=== PATIENT | female | born 1945 | race Caucasian/White ===

== ENCOUNTER → 2022-08-17 | Day surgery (SDC) | payer OTHER ==
[~2022-08-17] MED LIST: ATROPINE SULF 1 MG/10 ML SYR IV ONE; FLUMAZENIL 0.1 MG/ML (5 mL VIAL) IV ONE; LIDOCAINE VISCOUS 2% SOLN 15 ML UDC ONE; MIDAZOLAM HCL 10 ML ONE; NA CHLORIDE 0.9% 500 ML ONE; ONDANSETRON 4 MG/2 ML VIAL ONE; PHENOL 1.4% ORAL SPRAY 180ML ONE
--- NOTE | 2022-08-17 12:46 | TEE ---
TRANSESOPHAGEAL ECHOCARDIOGRAM REPORT CARDIOLOGY DEPARTMENT DATE OF STUDY: 08/17/2022 HEIGHT: 5'9" WEIGHT: 166 lbs DIAGNOSIS: MITRAL VALVE INSUFFICIENCY CPA TAX COMMENTS: ISAMAR CARDIAC HISTORY: CATHERIZATION: SURGERY: PROSTHETIC VALVE: PACEMAKER: 2 DIMENSIONAL ASSESSMENT: RIGHT ATRIUM: LEFT ATRIUM: RIGHT VENTRICLE: LEFT VENTRICLE: TRICUSPID VALVE: MITRAL VALVE: PULMONIC VALVE: AORTIC VALVE: PERICARDIAL EFFUSION: AORTIC ROOT: EJECTION FRACTION: 60-65 % LEFT VENTRICULAR WALL MOTION: DOPPLER/COLOR FLOW: COMMENTS: 1. NORMAL LEFT VENTRICULAR EJECTION FRACTION 60-65% 2. MODERATE TO SEVERE MITRAL REGURGITATION. TECHNOLOGIST: BETTY DAY
--- NOTE | 2022-08-17 18:14 | OP ---
Date of Procedure: 08/17/2022 Surgeon: PHILIP HAMMONDS Procedure Performed: Transesophageal echocardiogram. Indication: Mitral valve regurgitation evaluation. Description Of Procedure: After risks, benefits, and alternatives were explained, patient agreed to the procedure and signed formal consent, and patient was brought into the cardiac catheterization lab oratory and we numbed the back of the throat using local lidocaine and gave 5 mg of Versed and ISAMAR pr obe was inserted. ISAMAR was performed without complications and patient tolerated the procedure very w ell and was sent to recovery. Conclusion: 1.Successful transesophageal echocardiogram. 2.Moderate to severe mitral valve regurgitation. SR/MODL Voice ID: [id number] Report ID: [id number]
== END ==
LOC: EKG 08:00
PROVIDERS: ATTEND Internal Medicine
DX: I34.2 Nonrheumatic mitral (valve) stenosis (principal); I48.91 Unspecified atrial fibrillation; I10 Essential (primary) hypertension; I51.7 Cardiomegaly; I65.29 Occlusion and stenosis of unspecified carotid artery; Z79.899 Other long term (current) drug therapy; Z91.010 Allergy to peanuts; Z82.49 Family history of ischemic heart disease and other diseases of the circulatory system
CPT/HCPCS: 93312; J2250; J2405; J7040; J0461

== ENCOUNTER 2022-11-20 22:59 | Observation (INO) | payer OTHER ==
--- OUTSIDE RECORDS SUMMARY | 2022-11-20 23:04 | XMS REPORT | Continuity of Care Document ---
:1945 Author Organization [facility] t Address [address] [place] [address] [place] [address] Care Team Providers Name Role Phone Pcp, Patient Does Not Have A Primary Care Physician [id number] Chang REYNA, Renee Hernandez Attending Clinician [phone] Josafat DEUTSCH, Colleen Jeffers Attending Clinician Zofia ARMENDARIZ, Torie Doe Attending Clinician Unavailable Only, Ang Db Test Attending Clinician Unavailable Clinton REYNA, Janell Attending Clinician JANELL PAINTER Attending Clinician Unavailable Doctor Unassigned, Perrin Attending Clinician Unavailable Payers Payer Name Policy Type Policy Number Effective Date Expiration Date S ource Problems Condition Condition Condition Status Onset Resolution Last Treating Co mments Source Name Details Category Date Date Treatment Clinician Date Urge Urge Disease Active Methodi incontinen incontinen 07-27 ce of ce of 00:00: Hospita urine urine 00 l Atrophic Atrophic Disease Active Metho di vaginitis vaginitis 07-27 00:00: Hospita 00 l Arthritis Arthritis Disease Active Uni vers 8-12 ity of 00:00: [address] Actinic Actinic Disease Active Univers keratosis keratosis 6-20 ity of 00:00: [address] Allergies, Adverse Reactions, Alerts Allergy Allergy Status Severity Reaction(s) Onset Inactive Treating Comm ents Source Name Type Date Date Clinician Tree Propensi Active Other (See peanuts Met hodi Nuts ty to Comments) 07-27 st adverse 00:00: Hospita reaction 00 l s to drug Codeine Propensi Active Univers ty to 2 ity of adverse 00:00: [place] reaction 00 Medical s Branch CODEINE DRUG Active Univers INGREDI 07-03 ity of 00:00: [place] 00 Medical Branch Family History Family Member Diagnosis Comments Start Date Stop Date Source Natural father [facility] Natural mother Lung cancer [facility] Natural brother Atrial fibrillation [facility] Natural brother Heart attack [facility] Social History Social Habit Start Date Stop Date Quantity Comments Source History of tobacco Cigarette Smoker [facility] Gender identity [facility] Sexual orientation [facility] History SDOH University o f Alcohol Frequency [place] [facility] History SDOH University o f Alcohol Std Drinks [place] [facility] [place] History SDOH University o f Alcohol Binge [place] [facility] Exposure to Yes University of SARS-CoV-2 (event) [facility] Tobacco use and 2021-07-27 2021-07-27 Smokeless Christian exposure 00:00:00 00:00:00 tobacco non-user Hospital Cigarettes smoked 2021-07-27 2021-07-[address] current (pack per 00:00:00 00:00:00 Hospita l day) - Reported Cigarette 2021-07-27 2021-07-27 Christian pack-years 00:00:00 00:00:00 Hospital Alcohol intake 2021-07-27 2021-07-27 Current drinker Metho dist 00:00:00 00:00:00 of alcohol Hospital (finding) History of Social 2021-07-27 2021-07-[address] function 00:00:00 00:00:00 Hospital Alcohol Comment 2021-07-27 2021-07-27 daily Christian 00:00:00 00:00:00 Hospital Tobacco Comment 2010-12-16 2010-12-16 second ahnd Universi ty of 00:00:00 00:00:00 smoker both [facility] parents heavy Branch smokers. smoked a pack per week for 5 years Sex [birth year] [facility] 00:00:00 00:00:00 Hospital Smoking Status Start Date Stop Date Source Ex-smoker 2021-07-27 00:00:00 2021-07-27 00:00:00 [facility] Medications Ordered Filled Start Stop Current Ordering Indication Dosage Frequency Signature Comments Components Source Medication Medication Date Date Medication? Clinician (SIG) Name Name fluticasone Yes QD Inhale 1 Me thodi -umeclidin- 2-[address] vil[facility]ter 11:10: s once Hospita (TRELEGY 19 daily. q l ELLIPTA) morning 100-62.5-25 mcg blister with device powder for inhalation fluticasone 0 Yes QD Inhale 1 Me thodi -umeclidin- 2-[address] vilanter 11:10: s once Hospita (TRELEGY 19 daily. q l ELLIPTA) morning 100-62.5-25 mcg blister with device powder for inhalation fluticasone 0 Yes QD Inhale 1 Me thodi -umeclidin- 2-[address] vilanter 11:10: s once Hospita (TRELEGY 19 daily. q l ELLIPTA) morning 100-62.5-25 mcg blister with device powder for inhalation fluticasone 0 Yes QD Inhale 1 Me thodi -umeclidin- 2-[address] vilanter 11:10: s once Hospita (TRELEGY 19 daily. q l ELLIPTA) morning 100-62.5-25 mcg blister with device powder for inhalation fluticasone 0 Yes QD Inhale 1 Me thodi -umeclidin- 2-[address] vilanter 11:10: s once Hospita (TRELEGY 19 daily. q l ELLIPTA) morning 100-62.5-25 mcg blister with device powder for inhalation fluticasone 0 Yes QD Inhale 1 Me thodi -umeclidin- 2-[address] vilanter 11:10: s once Hospita (TRELEGY 19 daily. q l ELLIPTA) morning 100-62.5-25 mcg blister with device powder for inhalation estradioL 2021-0 Yes 1g [id number] Insert 1 g Methodi (ESTRACE) 2-[id number] 0.01 % (0.1 00:00: 3W vagina 3 Ho spita mg/gram) 00 (three) l vaginal times a cream week. estradioL 2022-0 Yes 1g Q.[id number] Insert 1 g Methodi (ESTRACE) 2-[id number] 0.01 % (0.1 00:00: 3W vagina 3 Ho spita mg/gram) 00 (three) l vaginal times a cream week. estradioL 2022-0 Yes 1g Q.[id number] Insert 1 g Methodi (ESTRACE) 2-[id number] 0.01 % (0.1 00:00: 3W vagina 3 Ho spita mg/gram) 00 (three) l vaginal times a cream week. estradioL 2022-0 Yes 1g Q.[id number] Insert 1 g Methodi (ESTRACE) 2-[id number] 0.01 % (0.1 00:00: 3W vagina 3 Ho spita mg/gram) 00 (three) l vaginal times a cream week. estradioL 2022-0 Yes 1g Q.[id number] Insert 1 g Methodi (ESTRACE) 2-[id number] 0.01 % (0.1 00:00: 3W vagina 3 Ho spita mg/gram) 00 (three) l vaginal times a cream week. estradioL 2021-0 Yes 1g Q.[id number] Insert 1 g Methodi (ESTRACE) 2-[id number] 0.01 % (0.1 00:00: 3W vagina 3 Ho spita mg/gram) 00 (three) l vaginal times a cream week. sotaloL 2020-05 Yes Q.5D Take by Methodi (BETAPACE) 2-[address] 80 MG 00:00: (two) Hospita tablet 00 times a l day. sotaloL 2020-05 Yes Q.5D Take by Methodi (BETAPACE) 2-[address] 80 MG 00:00: (two) Hospita tablet 00 times a l day. sotaloL 2020-05 Yes Q.5D Take by Methodi (BETAPACE) 2-[address] 80 MG 00:00: (two) Hospita tablet 00 times a l day. sotaloL 2020-05 Yes Q.5D Take by Methodi (BETAPACE) 2-[address] 80 MG 00:00: (two) Hospita tablet 00 times a l day. sotaloL 2020-05 Yes Q.5D Take by Methodi (BETAPACE) 2-[address] 80 MG 00:00: (two) Hospita tablet 00 times a l day. sotaloL 2020-05 Yes Q.5D Take by Methodi (BETAPACE) 2-[address] 80 MG 00:00: (two) Hospita tablet 00 times a l day. aspirin 81 Yes 81mg Take 81 mg U nivers mg tablet 7-20 by mouth ity of 09:46: daily. [address] calcium-vit Yes 1{tbl} Take 1 Tab Univers coron[place] D 7-20 by mouth ity of (OSCAL-500) 09:46[place]. [place] 500-200 04 Medical mg-unit per Branch tablet MULTIVITAMI Yes Take by Uni vers N ORAL 7-20 mouth. ity of 09:46: [address] OMEGA-3 Yes Take by Univers FATTY ACIDS 7-20 mouth. ity of (OMEGA 3 09:46: [place] ORAL) [address] [place] [address] aspirin 81 Yes 81mg Take 81 mg U nivers mg tablet 7-20 by mouth ity of 09:46: daily. [address] calcium-vit Yes 1{tbl} Take 1 Tab Univers [place] D 7-20 by mouth ity of (OSCAL-500) 09:46: [place]. [place] 500-200 04 Medical mg-unit per Branch tablet MULTIVITAMI Yes Take by Uni vers N ORAL 7-20 mouth. ity of 09:46: [address] OMEGA-3 Yes Take by Univers FATTY ACIDS 7-20 mouth. ity of (OMEGA 3 09:46: [place] ORAL) [address] [place] [address] aspirin 81 Yes 81mg Take 81 mg U nivers mg tablet 7-20 by mouth ity of 09:46: daily. [address] calcium-vit Yes 1{tbl} Take 1 Tab Univers [place] D 7-20 by mouth ity of (OSCAL-500) 09:46: [place]. [place] 500-200 04 Medical mg-unit per Branch tablet MULTIVITAMI Yes Take by Uni vers N ORAL 7-20 mouth. ity of 09:46: [place] 04 Medical Branch OMEGA-3 Yes Take by Univers FATTY ACIDS 7-20 mouth. ity of (OMEGA 3 09:46: [place] ORAL) 04 Medical Branch albuterol 2009-05 Yes [id number] 2{puff} Inhale 2 Univers (VENTOLIN) 1-18 Puffs ity of 90 00:00: every 6 [place] mcg/Actuati 00 (six) Medical on inhaler hours as Branc h needed for Wheezing and Shortness of Breath. albuterol 2009-05 Yes [id number] 2{puff} Inhale 2 Univers (VENTOLIN) 1-18 Puffs ity of 90 00:00: every 6 [place] mcg/Actuati 00 (six) Medical on inhaler hours as Branc h needed for Wheezing and Shortness of Breath. albuterol 2009-05 Yes [id number] 2{puff} Inhale 2 Univers (VENTOLIN) 1-18 Puffs ity of 90 00:00: every 6 [place] mcg/Actuati 00 (six) Medical on inhaler hours as Branc h needed for Wheezing and Shortness of Breath. valACYclovi Yes 2g Take 2 Univ ers r (VALTREX) 6-02 Tabs by ity o f 1 g tablet 00:00: mouth. [place] 00 twice Medical daily as Branch needed for cold sore valACYclovi Yes 2g Take 2 Univ ers r (VALTREX) 6-02 Tabs by ity o f 1 g tablet 00:00: mouth. [place] 00 twice Medical daily as Branch needed for cold sore valACYclovi Yes 2g Take 2 Univ ers r (VALTREX) 6-02 Tabs by ity o f 1 g tablet 00:00: mouth. [place] 00 twice Medical daily as Branch needed for cold sore Immunizations Ordered Filled Immunization Date Status Comments Sour e Immunization Name Name SILVIA COVID-19 2021-01-29 Completed [facility] MRNA VACCINATION 00:00:00 [facility] PFIZER COVID-19 2021-01-29 Completed Christian MRNA VACCINATION 00:00:00 [facility] COVID-19 2021-01-29 Completed Christian MRNA VACCINATION 00:00:00 [facility] SILVIA COVID-19 2021-01-29 Completed [facility] Com[facility] MRNA VACCINATION 00:00:00 [facility] PFIZER COVID-19 2021-01-29 Completed Christian MRNA VACCINATION 00:00:00 [facility] PFIZER COVID-19 2020-07-01 Completed Christian MRNA VACCINATION 00:00:00 [facility] PFIZER COVID-19 2020-07-01 Completed Christian MRNA VACCINATION 00:00:00 [facility] PFIZER COVID-19 2020-07-01 Completed [facility] MRNA VACCINATION 00:00:00 [facility] PFIZER COVID-19 2020-07-01 Completed [facility] MRNA VACCINATION 00:00:00 [facility] PFIZER COVID-19 2020-07-01 Completed [facility] MRNA VACCINATION 00:00:00 [facility] PFIZER COVID-19 2020-07-01 Completed [facility] MRNA VACCINATION 00:00:00 [facility] SILVIA COVID-19 2020-06-10 Completed [facility] MRNA VACCINATION 00:00:00 [facility] SILVIA COVID-19 2020-06-10 Completed [facility] MRNA VACCINATION 00:00:00 [facility] SILVIA COVID-Marino 2020-06-10 Completed Christian MRNA VACCINATION 00:00:00 [facility] SILVIA COVID-Marino 2020-06-10 Completed Christian MRNA VACCINATION 00:00:00 [facility] SILVIA COVID-Marino 2020-06-10 Completed Christian MRNA VACCINATION 00:00:00 [facility] SILVIA COVID-Marino 2020-06-10 Completed Christian MRNA VACCINATION 00:00:00 [facility] Influenza Virus 2010-02-27 Completed Universit y of Vaccine 00:00:00 [facility] Influenza Virus 2010-02-27 Completed Universit y of Vaccine 00:00:00 [facility] Influenza Virus 2010-02-27 Completed Universit y of Vaccine 00:00:00 [facility] Influenza Virus 2009-02-27 Completed Universit y of Vaccine 00:00:00 [facility] Pneumococcal 7 2009-02-27 Completed University of Conjugate, PCV7 00:00:00 [place] [facility] (Prevnar7) [place] Influenza Virus 2009-02-27 Completed Universit y of Vaccine 00:00:00 [facility] Pneumococcal 7 2009-02-27 Completed University of Conjugate, PCV7 00:00:00 [place] [facility] (Prevnar7) [place] Influenza Virus 2009-02-27 Completed Universit y of Vaccine 00:00:00 [facility] Pneumococcal 7 2009-02-27 Completed University of Conjugate, PCV7 00:00:00 [place] [facility] (Prevnar7) Branch Procedures Procedure Date / Time Performed Performing Clinician Sourc e CT CHEST WO CONTRAST 2021-12-14 16:57:10 [facility] ASSIGNMENT OF BENEFITS 2021-02-22 22:39:25 Doctor Unassigned, No [facility] Name Medical Branch Plan of Care Planned Activity Planned Date Details Comments Source Future Scheduled 2022-11-20 Hepatitis C screening [facility] [place] [place] Hospital Test 23:03:34 (procedure) [code = 259364955] Future Scheduled 2022-11-20 SHINGLES VACCINES (1 Met [facility] [place] [facility] Test 23:03:34 of 2) [code = SHINGLES VACCINES (1 of 2)] Future Scheduled 2022-11-20 65+ PNEUMOCOCCAL Methodi Hospital Test 23:03:34 VACCINE (1 - PCV) [code = 65+ PNEUMOCOCCAL VACCINE (1 - PCV)] Future Scheduled 2022-11-20 COVID-19 [facility] 23:03:34 Pfizer series) [code = COVID-19 VACCINE (4 - Pfizer series)] Future Scheduled 2022-11-20 INFLUENZA VACCINE Method ist Hospital Test 23:03:34 [code = INFLUENZA VACCINE] Future Scheduled 2022-05-16 Hepatitis C screening [facility] [place] [place] Hospital Test 04:07:16 (procedure) [code = 033686235] Future Scheduled 2022-05-16 SHINGLES VACCINES (1 Met [facility] Hospital Test 04:07:16 of 2) [code = SHINGLES VACCINES (1 of 2)] Future Scheduled 2022-05-16 65+ PNEUMOCOCCAL Methodi Hospital Test 04:07:16 VACCINE (1 - PCV) [code = 65+ PNEUMOCOCCAL VACCINE (1 - PCV)] Future Scheduled 2022-05-16 COVID-19 VACCINE (4 - Me odi Hospital Test 04:07:16 Booster for Pfizer series) [code = COVID-19 VACCINE (4 - Booster for Pfizer series)] Future Scheduled 2022-05-16 INFLUENZA VACCINE Method ist Hospital Test 04:07:16 [code = INFLUENZA VACCINE] Future Scheduled 2022-05-16 [facility] 04:07:16 (procedure) [code = 769831156] Future Scheduled 2022-05-16 SHINGLES VACCINES (1 Met [facility] Hospital Test 04:07:16 of 2) [code = SHINGLES VACCINES (1 of 2)] Future Scheduled 2022-05-16 65+ PNEUMOCOCCAL Methodi [facility] Test 04:07:16 VACCINE (1 - PCV) [code = 65+ PNEUMOCOCCAL VACCINE (1 - PCV)] Future Scheduled 2022-05-16 COVID-19 VACCINE (4 - Me [facility] Hospital Test 04:07:16 Booster for Pfizer series) [code = COVID-19 VACCINE (4 - Booster for Pfizer series)] Future Scheduled 2022-05-16 INFLUENZA VACCINE Method [facility] Hospital Test 04:07:16 [code = INFLUENZA VACCINE] Future Scheduled 2022-05-16 Hepatitis C screening [facility] Hospital Test 04:07:16 (procedure) [code = 702021310] Future Scheduled 2022-05-16 SHINGLES VACCINES (1 Met [facility] [place] [facility] Test 04:07:16 of 2) [code = SHINGLES VACCINES (1 of 2)] Future Scheduled 2022-05-16 65+ [facility]AL [facility] 04:07:16 VACCINE (1 - PCV) [code = 65+ PNEUMOCOCCAL VACCINE (1 - PCV)] Future Scheduled 2022-05-16 COVID-19 VACCINE (4 - [facility] [place] [place] Hospital Test 04:07:16 Booster for Pfizer series) [code = COVID-19 VACCINE (4 - Booster for Pfizer series)] Future Scheduled 2022-05-16 INFLUENZA VACCINE [facility] Hospital Test 04:07:16 [code = INFLUENZA VACCINE] Future Scheduled 2022-05-16 Hepatitis C screening [facility] Hospital Test 04:07:16 (procedure) [code = [id number]] Future Scheduled 2022-05-16 SHINGLES VACCINES (1 Met [facility] Test 04:07:16 of 2) [code = SHINGLES VACCINES (1 of 2)] Future Scheduled 2022-05-16 65+ [facility]CCAL [facility] Test 04:07:16 VACCINE (1 - PCV) [code = 65+ PNEUMOCOCCAL VACCINE (1 - PCV)] Future Scheduled 2022-05-16 COVID-19 VACCINE (4 - [facility] [place] Hospital Test 04:07:16 Booster for Pfizer series) [code = COVID-19 VACCINE (4 - Booster for Pfizer series)] Future Scheduled 2022-05-16 INFLUENZA VACCINE [facility] Hospital Test 04:07:16 [code = INFLUENZA VACCINE] Future Scheduled 2022-05-16 Hepatitis C screening [facility] Hospital Test 04:07:16 (procedure) [code = [id number]] Future Scheduled 2022-05-16 SHINGLES VACCINES (1 Met [facility] Hospital Test 04:07:16 of 2) [code = SHINGLES VACCINES (1 of 2)] Future Scheduled 2022-05-16 65+ PNEUMOCOCCAL Methodi Hospital Test 04:07:16 VACCINE (1 - PCV) [code = 65+ PNEUMOCOCCAL VACCINE (1 - PCV)] Future Scheduled 2022-05-16 COVID-19 VACCINE (4 - [facility] Hospital Test 04:07:16 Booster for Pfizer series) [code = COVID-19 VACCINE (4 - Booster for Pfizer series)] Future Scheduled 2022-05-16 INFLUENZA VACCINE [facility] Test 04:07:16 [code = INFLUENZA VACCINE] Encounters Start End Encounter Admission Attending Care Care Encounter Source Date/Time Date/Time Type Type Clinicians Facility Department ID 2021-12-14 2021-12-14 [facility], 1.2.840.1 [id number] Methodi 10:27:15 23:59:00 Encounter Jayasimha 77215.1.[address] [place] 3.430.2.7 Hosp tomás .3.975506 l .8 2021-12-14 2021-12-14 [facility], 1.2.840.1 [id number] Methodi 10:27:15 23:59:00 Encounter Jayasimha 44294.1.[address] [place] 3.430.2.7 Hosp tomás .3.636338 l .8 2021-12-14 2021-12-14 Travel 1.2.840.1 1.2.173.942 [id number] Methodi 00:00:00 00:00:[address] 3.430.2.7 0.2.7.3.698 Ho spita .3.344781 084.8 l .8 2021-12-14 2021-12-14 Travel 1.2.840.1 1.2.208.535 [id number] Methodi 00:00:00 00:00:[address] 3.430.2.7 0.2.7.3.698 Ho spita .3.142301 084.8 l .8 2021-12-08 2021-12-08 Travel 1.2.840.1 1.2.263.235 [id number] [id number] Methodi 00:00:00 00:00:[address] 3.430.2.7 0.2.7.3.698 Ho spita .3.746580 084.8 l .8 2021-12-08 2021-12-08 Transcribe Chang, 1.2.840.1 [id number] Methodi 00:00:00 00:00:00 Orders Jayasimha 93847.1.[address] [place] 3.430.2.7 Hosp tomás .3.324114 l .8 2021-12-08 2021-12-08 Transcribe Chang, 1.2.840.1 [id number] Methodi 00:00:00 00:00:00 Orders Jayasimha 64675.1.[address] [place] 3.430.2.7 Hosp tomás .3.461962 l .8 2021-12-08 2021-12-08 Travel 1.2.840.1 1.2.747.174 [id number] Methodi 00:00:00 00:00:[address] 3.430.2.7 0.2.7.3.698 Ho spita .3.197484 084.8 l .8 2021-07-27 2021-07-27 Office Maurice, 1.2.840.1 [id number] Methodi 09:30:00 11:00:58 Visit Colleen Jeffers 63979.1.[address] 3.430.2.7 Hospit a .3.027645 l .8 2021-07-27 2021-07-27 Telephone Josafat 1.2.840.1 [id number] Methodi 00:00:00 00:00:00 Colleen Jeffers 51175.1.[address] 3.430.2.7 Hospit a .3.615886 l .8 2021-07-27 2021-07-27 Travel 1.2.840.1 1.2.668.422 [id number] Methodi 00:00:00 00:00:[address] 3.430.2.7 0.2.7.3.698 Ho spita .3.970584 084.8 l .8 2021-02-23 2021-02-23 Letter ASIA Armijo 1.2.840.114 [id number] Univers 00:00:00 00:00:00 (Out) Torie FUENTES 350.1.13.10 it y of HOSPITAL 4.2.7.2.686 Zhang as [id number] [facility] 019 Branch 2021-02-22 2021-02-22 Laboratory Only, Ang Db Test [facility] 1.2.8 40.114 [id number] Univers 17:40:08 17:55:08 Only [facility] 350.1.13.10 ity of [place] 4.2.7.2.686 Zhang as Dru?Blea [id number] [address] Medical Office Building 2021-02-22 2021-02-22 [facility] [id number] Univers 16:45:00 16:45:00 JANELL ity of [facility] 2021-02-22 2021-02-22 Orders Doctor BETANCOURT 1.2.840.114 [id number] Univers 00:00:00 00:00:00 Only UnassignedALFREDO 350.1.13.10 ity of [place] [facility] 4.2.7.2.686 Zhang as [id number] [facility] 009 Branch 2021-01-29 2021-01-29 Outpatient [facility] [id number] [address] [place] [address] 00:00:00 00:00:[address] 2021-01-14 2021-01-14 Outpatient [facility] [id number] 00:00:00 00:00:[address] 2020-07-01 2020-07-01 Outpatient [facility] [id number] 00:00:00 00:00:[address] 2020-06-10 2020-06-10 Outpatient [facility] [id number] 00:00:00 00:00:[address] Results This patient has no known results.
[2022-11-21 00:16] LABS: Magnesium 2.3 mg/dL (1.6-2.4); Potassium 3.9 mEq/L (3.5-5.1); Troponin High Sensitivity 8.7 pg/mL (<58.9)
[2022-11-21 00:17] LABS: Absolute Lymphocytes (CBC) 1.4 K/uL (0.7-4.9); Hematocrit 38.9 % (36.0-45.0); Lymphocytes % 21.4 % (15.3-44.8); MCV 93.4 fL (80-100); MPV 7.8 fL (7.6-11.3); RBC Red Blood Cell Count 4.16 M/uL (3.86-4.86)
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
--- NOTE | 2022-11-21 01:01 | ER ---
Nurse's Notes [facility] Name: Marcial Lehman Age: 77 yrs Sex: Female : 1945 Arrival Date: 11/20/2022 Time: 22:59 Bed 20 Private MD: Diagnosis: Heart failure, unspecified;Shortness of breath;SARS-associated coronavirus as the cause of diseases classified elsewhere Presentation: 11/20 23:21 Chief complaint: Patient states: increase in SOB and right shoulder pain at home COVID kl test positive. Coronavirus screen: Vaccine status: Patient reports having had a previously documented Covid positive illness. November 20, 2022. Ebola Screen: Patient negative for fever greater than or equal to 101.5 degrees Fahrenheit, and additional compatible Ebola Virus Disease symptoms. Initial Sepsis Screen: Does the patient meet any 2 criteria? No. Patient's initial sepsis screen is negative. Does the patient have a suspected source of infection? No. Patient's initial sepsis screen is negative. Risk Assessment: Do you want to hurt yourself or someone else? Patient reports no desire to harm self or others. 23:21 Method Of Arrival: Ambulatory 23:21 Acuity: ISAIAH 3 kl Triage Assessment: 23:27 General: Appears uncomfortable, Behavior is cooperative. Pain: Complains of pain in kl right posterior upper chest wall Pain currently is 7 out of 10 on a pain scale. EENT: No deficits noted. Neuro: No deficits noted. Cardiovascular: Reports shortness of breath. Historical: - Allergies: 23:28 Nuts; kl - Home Meds: 23:24 Sotalol Oral [Active]; kl 23:33 Xarelto oral [Active]; kl - PMHx: 23:24 mitral valve prolapse; Atrial fibrillation; kl - Immunization history:: Adult Immunizations up to date. - Social history:: Smoking status: Patient denies any tobacco usage or history of. Screenin:30 [facility] ED Fall Risk Assessment (Adult) History of falling in the last 3 months, jb4 including since admission No falls in past 3 months (0 pts) Confusion or Disorientation No (0 pts) Score/Fall Risk Level 0 - 2 = Low Risk Oriented to surroundings, Maintained a safe environment. Abuse screen: Denies threats or abuse. Nutritional screening: No deficits noted. Tuberculosis screening: No symptoms or risk factors identified. Assessment: 23:30 General: Appears in no apparent distress. uncomfortable, Behavior is calm, cooperative, jb4 appropriate for age. Pain: Complains of pain in back,right shoulder Pain does not radiate. Pain currently is 7 out of 10 on a pain scale. Neuro: Level of Consciousness is awake, alert, obeys commands, Oriented to person, place, time, situation. Cardiovascular: Patient's skin is warm and dry. Respiratory: Airway is patent Respiratory effort is even, unlabored, Respiratory pattern is regular, symmetrical. GI: No signs and/or symptoms were reported involving the gastrointestinal system. : No signs and/or symptoms were reported regarding the genitourinary system. EENT: No signs and/or symptoms were reported regarding the EENT system. Derm: Skin is intact, Skin is pink, warm \T\ dry. Musculoskeletal: Circulation, motion, and sensation intact. Range of motion: intact in all extremities. 11/21 00:41 Reassessment: Patient appears in no apparent distress at this time. Patient and/or jb4 family updated on plan of care and expected duration. Pain level reassessed. Patient is alert, oriented x 3, equal unlabored respirations, skin warm/dry/pink. Provider notified pt reports an increase in pain, no new orders at this time. 02:10 Reassessment: Patient appears in no apparent distress at this time. Patient and/or jb4 family updated on plan of care and expected duration. Pain level reassessed. Patient is alert, oriented x 3, equal unlabored respirations, skin warm/dry/pink. Pt took 40mg of sotalol and 20 mg of xarelto from home medications. 03:21 Reassessment: Patient appears in no apparent distress at this time. Patient and/or jb4 family updated on plan of care and expected duration. Pain level reassessed. Patient is alert, oriented x 3, equal unlabored respirations, skin warm/dry/pink. Vital Signs: 11/20 23:21 BP 138 / 99; Pulse 58; Resp 22; Temp 98.9(O); Pulse Ox 99% on R/A; Weight 85.5 kg; Pain kl 7/10; 11/21 00:41 BP 138 / 94; Pulse 100; Resp 20; Pulse Ox 94% on R/A; jb4 01:30 BP 136 / 98; Pulse 94; Resp 16; Pulse Ox 93% on R/A; jb4 02:35 BP 140 / 104; Pulse 106; Resp 17; Pulse Ox 94% on R/A; jb4 03:21 BP 135 / 88; Pulse 93; Resp 14; Pulse Ox 93% ; jb4 11/20 23:21 Pain Scale: Adult ED Course: 11/20 23:03 Patient arrived in ED. jj6 23:12 George Diehl DO is Attending Physician. ms3 23:24 Triage completed. 23:30 Patient has correct armband on for positive identification. Placed in gown. Bed in low jb4 position. Call light in reach. Side rails up X 1. Client placed on continuous cardiac and pulse oximetry monitoring. NIBP monitoring applied. library monitor on. 23:35 Mamadou Flannery, RN is Primary Nurse. jb4 11/21 00:27 XRAY Chest (1 view) In Process Unspecified. EDMS 00:59 Barby Bonilla MD is Hospitalizing Provider. ms3 03:20 No provider procedures requiring assistance completed. Patient admitted, IV remains in jb4 place. Administered Medications: 01:40 Drug: Ketorolac IVP 10 mg 10 mg Route: IVP; Site: right antecubital; jb4 01:40 Drug: Furosemide IVP 20 mg Route: IVP; Site: right antecubital; jb4 Outcome: 01:00 Decision to Hospitalize by Provider. ms3 03:20 Admitted to ER Hold. Please see [facility] for further documentation. jb4 03:20 Condition: stable 03:20 Discharge instructions given to patient, Instructed on the need for admit, Demonstrated understanding of instructions. 14:19 Patient left the ED. bp Signatures: Dispatcher [employer] EDMS Blessing Ramos RN RN kl Bryson, James, RN RN jbTomi Correia RN RN bp Sims, Marcus, DO DO ms3 Denise Hayden jj6 Corrections: (The following items were deleted from the chart) 03:22 02:10 Reassessment: Patient appears in no apparent distress at this time. Patient jb4 and/or family updated on plan of care and expected duration. Pain level reassessed. Patient is alert, oriented x 3, equal unlabored respirations, skin warm/dry/pink. jb4
[2022-11-21] MEDS ORDERED: KETOROLAC 30 MG/ML INJ ONE (01:39)
[2022-11-21] MEDS ORDERED: FUROSEMIDE 20 MG/ 2ML VIAL ONE ×2 (01:39→09:56)
[2022-11-21] MEDS ORDERED: ONDANSETRON 4 MG/2 ML VIAL IV PRN (03:40)
[2022-11-21] MEDS ORDERED: ACETAMINOPHEN 500 MG TAB PO PRN (03:40)
[2022-11-21] MEDS: HYDROCODONE/APAP 5/325 MG TAB PO PRN ×3 (04:51→21:31)
[2022-11-21] MEDS ORDERED: HYDROCODONE/APAP 5/325 MG TAB ONE (04:57)
[2022-11-21] MEDS: FUROSEMIDE 20 MG/ 2ML VIAL IV SCH ×2 (09:00→17:02)
[2022-11-21] MEDS: DULERA 200/5 (MOMETASONE/FORMOTEROL) INHALER IH SCH ×2 (09:59→20:44)
[2022-11-21 11:40] LABS: SARS-CoV-2 Antigen Rapid Res Positive (Negative)
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
--- NOTE | 2022-11-21 14:20 | EKG ---
Test Date: 2022-11-20 Test Time: 23:30:26 Ekg Manager: HOLA MEASUREMENT RESULTS: Intervals: Rate: 109 VA: QRSD: 80 QT: 356 QTc: 479 [place]: P: VA: QRS: 79 T: 76 INTERPRETIVE STATEMENTS: Atrial fibrillation Abnormal ECG Compared to ECG 06/10/2018 09:14:59 Sinus rhythm no longer present Atrial premature complex(es) no longer present First degree AV block no longer present ST (T wave) deviation no longer present Electronically Signed On 11-21-22 14:20:07 CDT by Drake Huerta
[2022-11-21 15:00] VITALS: BMI 23.9
--- NOTE | 2022-11-21 19:48 | CON ---
Date of Consultation: 11/21/2022 Reason For Consultation: Atrial fibrillation. History Of Present Illness: A 77-year-old female, who just came from a trip to [place]. She has been feeling very weak, easily fatigued and short of breath. No chest pain. I saw her in the office. S he was on sotalol 40 mg twice a day and used to be in sinus rhythm; however, when I saw her, she was in atrial fibrillation, so I increased the morning dose sotalol to 80 mg and kept the afternoon to 40 mg; however, condition worsened, so she presented to the emergency room and she was tested positive for COVID and the patient does not have any chest pain, shortness of breath at the present time or co [facility]. Past Medical History: Atrial fibrillation, dyslipidemia, anxiety. Medications: Refer to reconciliation sheet for detailed list. Allergies: NO KNOWN DRUG ALLERGIES. Family History: No premature coronary artery disease or cancer. Social History: She does not smoke or drink. Does not use any drugs. Review of Systems: All systems reviewed and they were negative except what mentioned in HPI. Physical Examination: Vital Signs: Reviewed. Head and Neck: Pupils are equal, reactive to light. Intact eye movements. No JVD. No cervical lym phadenopathy. Neck is supple. Thyroid is not enlarged. Lungs: Clear to auscultation bilaterally. No rhonchi, wheezing, or crackles. No accessory muscle u se. Heart: Regular rate and rhythm. No extra sounds. Abdomen: Soft, nontender. Bowel sounds positive. No organomegaly. No masses or hernia. No rigidi ty or rebound. Extremities: No clubbing or cyanosis. Intact pulses. Skin: No rash. Neurologic: Alert, awake. No acute focal deficits appreciated. Lymph Nodes: No cervical or axillary lymphadenopathy. Investigations: BUN is 11, creatinine 0.62. NT-proBNP is 3432. Troponins were negative and hemoglo bin is 12.9. Assessment And Recommendations: 1.Atrial fibrillation. Rate is controlled, but she does not tolerate atrial fibrillation very well. It is likely triggered by the recent COVID episode and the patient is already on anticoagulation. I will put her on sotalol 80 mg twice a day and monitor closely on telemetry and also resume anticoag ulation with either Xarelto or Eliquis. 2.Elevated NT-proBNP, mildly short of breath, likely diastolic heart failure from the atrial fibrill ation. I agree with low-dose Lasix. Carefully monitor BUN, creatinine, and electrolytes. 3.Hypertension. Blood pressure is controlled. SR/MODL Voice ID: [id number] Report ID: [id number]
[2022-11-21 20:40] VITALS: O2SAT 94
[2022-11-21] MEDS: APIXABAN 5 MG TABLET PO SCH (20:43)
[2022-11-22 03:55] LABS: Absolute Lymphocytes (CBC) 1.6 K/uL (0.7-4.9); Hematocrit 38.8 % (36.0-45.0); Lymphocytes % 23.3 % (15.3-44.8); MCV 92.8 fL (80-100); MPV 8.1 fL (7.6-11.3); RBC Red Blood Cell Count 4.18 M/uL (3.86-4.86)
[2022-11-22 04:18] LABS: Magnesium 2.3 mg/dL (1.6-2.4); Potassium 3.8 mEq/L (3.5-5.1)
[2022-11-22] MEDS: HYDROCODONE/APAP 5/325 MG TAB PO PRN (05:56)
[2022-11-22] MEDS ORDERED: SOTALOL HCL 80 MG TAB PO SCH (06:00)
[2022-11-22] MEDS ORDERED: POTASSIUM CL SA 10 MEQ TAB PO ONE (06:01)
[2022-11-22 08:12] VITALS: BP 118/60; TEMP 97.6
[2022-11-22] MEDS: APIXABAN 5 MG TABLET PO SCH (09:00)
[2022-11-22] MEDS: FUROSEMIDE 20 MG/ 2ML VIAL IV SCH (09:16)
[2022-11-22] MEDS: DULERA 200/5 (MOMETASONE/FORMOTEROL) INHALER IH SCH (09:17)
--- NOTE | 2022-11-22 10:34 | RAD REPORT ---
EXAM DESCRIPTION: RAD - C Spine W Obliques - 11/22/2022 9:48 am CLINICAL HISTORY: neck pain COMPARISON: No comparisons TECHNIQUE: 5 views of the cervical spine were obtained. Oblique views were also obtained. FINDINGS: Cervical vertebral bodies are normal in height and alignment. No fracture or other suspici ous bony finding. Oblique views show multilevel up to moderate facet and uncovertebral joint degenera tive changes, contributing to moderate neural foraminal narrowing on the left at C3-4, and on the rig ht at C5-6, and [id number] foraminal narrowing at multiple other levels. Endplate remodeling with mild disc height loss most notably at C4-5. There is no prevertebral soft tissue thickening or other significant soft tissue finding. IMPRESSION: No acute osseous abnormality. Degenerative changes with degrees of neural foraminal narr owing as above.
--- NOTE | 2022-11-22 14:05 | RAD REPORT ---
EXAM DESCRIPTION: Chest Single View CLINICAL HISTORY: 77 years Female DYSPNEA COMPARISON: None TECHNIQUE: AP view of the chest was obtained. FINDINGS: Cardiac silhouette is enlarged. Central vessels are moderately increased. Peribronchial th ickening bilaterally. Infrahilar airspace opacities bilaterally. No effusions bilaterally. IMPRESSION: Enlarged heart with moderate central congestion. Atelectatic change versus infiltrate or pulmonary congestion lower lungs bilaterally. Electronically signed by: Rowena Hutchinson MD 11/21/2022 1:02 AM CDT Due to temporary technical issues with the PACS/Fluency reporting system, reports are being signed by the in house radiologist without review as a courtesy to ensure prompt reporting. The interpreting r adiologist is fully responsible for the content of the report.
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
== END 2022-11-22 11:15 | disposition home or self-care (01) ==
LOC: ER 22:59 → INTOOBSV 11-21 03:39 → ERHOLD 11-21 03:39 → 2ND 11-21 13:54
PROVIDERS: ADMIT Internal Medicine; ATTEND Internal Medicine
DX: I50.32 Chronic diastolic (congestive) heart failure (principal); U07.1 COVID-19; I48.0 Paroxysmal atrial fibrillation; M47.892 Other spondylosis, cervical region; K57.90 Diverticulosis of intestine, part unspecified, without perforation or abscess without bleeding; E78.5 Hyperlipidemia, unspecified; Z79.01 Long term (current) use of anticoagulants
CPT/HCPCS: 93005; 85025 ×2; 80048 ×2; 36415 ×3; 83735 ×2; 84484 ×2; 83880 ×2; 71045; 72050; 94760 ×2; 96375; 96374; 99285; 87811; J3535; J1940 ×4; G0378

== ENCOUNTER 2022-12-08 11:15 | Day surgery (SDC) | payer OTHER ==
[2022-12-07 14:25] LABS: Absolute Lymphocytes (CBC) 1.5 K/uL (0.7-4.9); Hematocrit 39.4 % (36.0-45.0); Lymphocytes % 16.6 % (15.3-44.8); MCV 92.9 fL (80-100); MPV 7.7 fL (7.6-11.3); RBC Red Blood Cell Count 4.24 M/uL (3.86-4.86)
[2022-12-07 14:37] LABS: Protime INR 1.17
[2022-12-08] MEDS ORDERED: MIDAZOLAM HCL 5 ML ONE (11:31)
[2022-12-08] MEDS ORDERED: MIDAZOLAM HCL 2 MG/2 ML INJ ONE (11:31)
[2022-12-08] MEDS ORDERED: METOPROLOL TARTRATE 5 MG/5 ML INJ IV ONE (11:31)
[2022-12-08] MEDS ORDERED: FLUMAZENIL 0.1 MG/ML (5 mL VIAL) IV ONE (11:31)
[2022-12-08] MEDS ORDERED: LIDOCAINE VISCOUS 2% SOLN 15 ML UDC ONE (11:32)
[2022-12-08] MEDS ORDERED: PHENOL 1.4% ORAL SPRAY 180ML ONE (11:32)
[2022-12-08] MEDS ORDERED: ATROPINE SULF 1 MG/10 ML SYR IV ONE (11:32)
[2022-12-08] MEDS ORDERED: NA CHLORIDE 0.9% 500 ML ONE (11:43)
[2022-12-08 11:49] VITALS: BP 115/76; O2SAT 97
[2022-12-08 13:48] VITALS: TEMP 97.4
--- NOTE | 2022-12-08 14:32 | OP ---
Date of Procedure: 12/08/2022 Surgeon: PHILIP HAMMONDS Procedure Performed: 1.Transesophageal echocardiogram. 2.Electrical cardioversion. Diagnosis: Atrial fibrillation. Description Of Procedure: After risks, benefits, and alternatives were explained, the patient agreed to procedure and signed informed consent. The patient was brought into the OR room and after approp riate time-out, I numbed back of the throat with viscous and lidocaine and then gave 5 mg of Versed, and ISAMAR probe was inserted without difficulty. No left atrial appendage thrombus was seen. Then, a synchronized 200 joule electrical cardioversion was performed successfully converting the rhythm into sinus rhythm. Conclusion: Successful ISAMAR-guided electrical cardioversion. SR/MODL Voice ID: [id number] Report ID: [id number]
--- NOTE | 2022-12-08 17:02 | EKG ---
Test Date: 2022-12-08 Test Time: 12:43:47 Maxillofacial Surgeon: DENISE MEASUREMENT RESULTS: Intervals: Rate: 75 DC: 300 QRSD: 78 QT: 418 QTc: 466 [place]: P: 79 DC: 300 QRS: 73 T: 60 INTERPRETIVE STATEMENTS: Sinus rhythm with 1st degree AV block Otherwise normal ECG Compared to ECG 11/20/2022 23:30:26 First degree AV block now present Atrial fibrillation no longer present Electronically Signed On 12-08-22 17:01:46 CDT by Drake Huerta
--- NOTE | 2022-12-09 06:54 | TEE ---
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 TRANSESOPHAGEAL ECHOCARDIOGRAM PROBE WAS INSERTED, NO DIFFICULTY 2. NORMAL LEFT VENTRICULAR EJECTION FRACTION 55-60% 3. MODERATE MITRAL REGURGITATION 4. NO LEFT ATRIAL APPENDAGE THROMBUS TECHNOLOGIST: BRAD OWENS
== END 2022-12-08 13:45 | disposition home or self-care (01) ==
LOC: CCL 11:15
PROVIDERS: ATTEND Internal Medicine
DX: I48.91 Unspecified atrial fibrillation (principal); I34.0 Nonrheumatic mitral (valve) insufficiency; I44.0 Atrioventricular block, first degree
CPT/HCPCS: 93005; 93312; 85025; 80048; 36415; 85610; 85730; 92960; J2250; J7040; J0461

== ENCOUNTER 2023-10-27 11:24 | Day surgery (SDC) | payer OTHER ==
[2023-10-21 11:08] LABS: Absolute Eosinophils 0.2 K/uL (0-0.5); Absolute Lymphocytes (CBC) 1.5 K/uL (0.7-4.9); Absolute Monocytes 0.6 K/uL (0.1-1.3); Basophils % 0.6 % (0-1.3); Eosinophils % 3.4 % (0-4.4); Hematocrit 39.8 % (36.0-45.0); Hemoglobin 12.7 g/dL (12.0-15.0); Lymphocytes % 28.3 % (15.3-44.8); MCH 29.3 pg (27.0-35.0); MCHC 31.8 g/dL (32.0-36.0); MPV 8.1 fL (7.6-11.3); Monocytes % 11.5 % (3.3-12.3); Neutrophils % 56.2 % (41.7-73.7); Platelets 322 thou/uL (152-406); RBC Red Blood Cell Count 4.33 M/uL (3.86-4.86); Red Cell Distribution Width 13.8 % (12.1-15.2)
[2023-10-21 11:41] LABS: PT Prothrombin Time 19.5 SECONDS (9.5-12.5); PTT, Activated Partial Thromb 45.6 SECONDS (24.3-36.9); Protime INR 1.8
--- NOTE | 2023-10-21 13:15 | RAD REPORT ---
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 Hypertension COMPARISON: Chest Single View dated 11/21/2022; Chest Pa And Lat (2 Views) dated 08/25/2020; Chest Sin gle View dated 06/09/2018; Chest Single View dated 06/08/2018 TECHNIQUE: PA and lateral views of the chest were obtained. FINDINGS: The lungs are clear. Stable cardiomegaly. Central vasculature is within normal limits. No pleural effusion or pneumothorax seen. No acute bony finding noted. IMPRESSION: No acute cardiopulmonary process. Stable cardiomegaly.
--- NOTE | 2023-10-21 15:40 | EKG ---
Test Date: 2023-10-21 Test Time: 10:41:09 Plumbing Mechanic: SUYAPA MEASUREMENT RESULTS: Intervals: Rate: 69 NC: QRSD: 80 QT: 436 QTc: 467 [place]: P: NC: QRS: 70 T: 79 INTERPRETIVE STATEMENTS: Atrial fibrillation Abnormal ECG Compared to ECG 12/08/2022 12:43:47 Sinus rhythm no longer present First degree AV block no longer present Electronically Signed On 10-21-23 15:39:19 CDT by Lam Pedro
[~2023-10-27 11:24] MED LIST changes: -ATROPINE SULF 1 MG/10 ML SYR IV ONE; -FLUMAZENIL 0.1 MG/ML (5 mL VIAL) IV ONE; -LIDOCAINE VISCOUS 2% SOLN 15 ML UDC ONE; -MIDAZOLAM HCL 10 ML ONE; +NA CHLORIDE 0.9% 0 ML ONE; -NA CHLORIDE 0.9% 500 ML ONE; -ONDANSETRON 4 MG/2 ML VIAL ONE; -PHENOL 1.4% ORAL SPRAY 180ML ONE
[2023-10-27] MEDS ORDERED: NA CHLORIDE 0.9% 500 ML ONE (11:57)
[2023-10-27] MEDS ORDERED: HEPA 1000U/500MLS 2,000 UNIT/1,000 ML BAG IV ONE (12:15)
[2023-10-27] MEDS ORDERED: LIDOCAINE 1% 20 ML MDV ONE (12:16)
[2023-10-27] MEDS ORDERED: FENTANYL CITR 100 MCG/2 ML ONE (12:16)
[2023-10-27] MEDS ORDERED: TICAGRELOR 90 MG TABLET PO ONE (12:16)
[2023-10-27] MEDS ORDERED: HEPARIN 5000 UNIT/ML 1 ML VIAL ONE (12:16)
[2023-10-27] MEDS ORDERED: MIDAZOLAM HCL 2 MG/2 ML INJ ONE (12:16)
[2023-10-27] MEDS ORDERED: CLOPIDOGREL 75 MG TABLET ONE (12:17)
[2023-10-27] MEDS ORDERED: ASPIRIN 325 MG TAB ONE (12:17)
[2023-10-27] MEDS ORDERED: HEPARIN 10,000 UNIT/10 ML VIAL IV ONE (12:17)
[2023-10-27] MEDS ORDERED: VERAPAMIL HCL 10 MG/4 ML VIAL IV ONE (12:17)
--- NOTE | 2023-10-27 14:46 | OP ---
Date of Procedure: 10/27/2023 Surgeon: PHILIP HAMMONDS Procedures Performed: 1.Selective coronary angiogram. 2.Left heart catheterization. Indication: Pre open heart surgery for mitral valve repair for severe mitral valve regurgitation. Access: Right radial artery 6-Nigerien closed with TR band. Complications: None. Bleeding: Less than 50 mL. Anesthesia: Total sedation time was 30 minutes, used fentanyl and Versed. Description Of Procedure: After risks, benefits, and alternatives were explained, patient agreed to procedure and signed informed consent. [facility] prepped and draped in usual sterile fashion. Then, I accessed right radial artery using ped iatric micropuncture kit, placed a 6-Nigerien slender sheath, and took 5-Nigerien [place] 4 catheter over J -wire into the aortic root, engaged the left main. I took standard views and then the RCA, took li dard views and the catheter was pushed over the wire into the LV, measured LVEDP. Pullback did not r ecord any gradient. Then, removed the catheter and sheath, placed TR band with good hemostasis. Findings: 1.Left main: Normal. 2.LAD: Proximal 30% diffuse stenosis. Rest of the LAD is normal. 3.Normal diagonal branches. 4.Left circumflex: Moderate size with proximal long 50% stenosis. 5.RCA is large and dominant with mid focal 50% stenosis. 6.LVEDP: Borderline elevated at 30 mmHg. Conclusion: Mild to moderate coronary artery disease, nonobstructive. Plan: Proceed with mitral valve disease replacement. No need for bypass. SR/MODL Voice ID: [id number] Report ID: [id number]
[2023-10-27 15:58] VITALS: TEMP 56; O2SAT 95
[2023-10-27 16:35] VITALS: BP 125/60
== END 2023-10-27 16:00 | disposition home or self-care (01) ==
LOC: CCL 11:24
PROVIDERS: ATTEND Internal Medicine
DX: I34.0 Nonrheumatic mitral (valve) insufficiency (principal); I25.10 Atherosclerotic heart disease of native coronary artery without angina pectoris; I48.0 Paroxysmal atrial fibrillation; I65.23 Occlusion and stenosis of bilateral carotid arteries; I10 Essential (primary) hypertension; E78.2 Mixed hyperlipidemia; Z79.899 Other long term (current) drug therapy; Z87.891 Personal history of nicotine dependence; Z82.49 Family history of ischemic heart disease and other diseases of the circulatory system
CPT/HCPCS: 36415; 71046; 76937; 80048; 85025; 85610; 85730; 93005; 93454; 93458; 99152; 99153; C1893; J1644; J2001; J2250; J3010; J7040; Q9966